=== PATIENT | male | born 1970 | race Two or more races ===

== ENCOUNTER 2020-08-23 11:00 | Emergency (ER) | payer OTHER ==
[~2020-08-23] VITALS: Ht 172.7 cm; Wt 110.2 kg
[2020-08-23] MEDS ORDERED: NORFLEX100MG PO (15:09)
[2020-08-23] MEDS ORDERED: KETO10TA2 PO (15:09)
== END 2020-08-23 15:44 | disposition home or self-care (01) ==
LOC: ER 11:00
DX: M54.89 Other dorsalgia (principal); R07.89 Other chest pain

== ENCOUNTER 2021-08-27 22:55 | Emergency (ER) | payer OTHER ==
[~2021-08-27] VITALS: Ht 175.3 cm; Wt 106.6 kg
[~2021-08-27 22:55] MED LIST: KETO10TA2 PO; NORFLEX100MG PO
[2021-08-28] MEDS ORDERED: KETO10TA2 PO ×2 (05:45→05:49)
== END 2021-08-28 06:03 ==
LOC: ER 22:55
DX: M25.511 Pain in right shoulder (principal)